=== PATIENT | male | born 1970 | race Hispanic/Latino ===

== ENCOUNTER 2024-10-12 18:06 | Emergency (ER) | payer BC ==
[~2024-10-12] VITALS: Ht 170.2 cm; Wt 83.0 kg
--- NOTE | 2024-10-12 18:16 | ERN ---
ED Note History of Present Illness Stated Complaint: CHEST PAIN,SOB,MULTIPLE COMPLAINTS Time Seen by MD: 18:09 Dictation: PATIENT IS A 54-YEAR-OLD MALE COMING IN TODAY WITH COMPLAINTS OF LEFT SHOULDER PAIN RADIATES TO HIS CHEST ONSET 1 HOUR PRIOR TO ARRIVAL. HE STATES HE WAS LIFTING SOME BRICKS WHEN HE FELT THE ONSET OF THE PAIN. SAID HE MIGHT HAVE BEEN DIAPHORETIC, TOOK A TYLENOL. STATES HE HAS NO HISTORY OF CARDIAC DISEASE. DOES HAVE A HISTORY OF HYPERTENSION CHOLESTEROL CURRENTLY IS ON A CARNIVAL HER DIET AND A KETO DIET TO LOSE WEIGHT. NO PAIN AT THIS TIME STATES THAT IS LEFT SHOULDER POPS WHEN HE RAISES HIS ARM UP. Allergies: Coded Allergies: No Known Drug Allergies (Unverified Allergy, Unknown, 10/12/24) Past Medical History RN Note Reviewed/Agreed w/PFSH: Yes Review of System Dictation CONSTITUTIONAL: NEGATIVE EXCEPT FOR HPI HEAD/FACE: NEGATIVE EXCEPT FOR HPI EENT: NEGATIVE EXCEPT FOR HPI RESPIRATORY: NEGATIVE EXCEPT FOR HPI GASTROINTESTINAL/ABDOMINAL: NEGATIVE EXCEPT FOR HPI GENITOURINARY: NEGATIVE EXCEPT FOR HPI MUSCULOSKELETAL: NEGATIVE EXCEPT FOR HPI LEFT SHOULDER PAIN RADIATES TO CHEST INTEGUMENTARY: NEGATIVE EXCEPT FOR HPI NEUROLOGICAL/PSYCH: NEGATIVE EXCEPT FOR HPI HEMATOLOGIC/LYMPHATIC: NEGATIVE EXCEPT FOR HPI ALL SYSTEMS NEGATIVE, EXCEPT NOTED ABOVE. 13 POINT REVIEW OF SYSTEMS ASSESSED AND ALL NEGATIVE EXCEPT FOR ABOVE. Initial Vital Sign VS Vital Signs Date Time Temp Pulse Resp B/P (MAP) Pulse Ox O2 Delivery O2 Flow Rate FiO2 10/12/24 18:23 98.2 78 16 133/80 98 Room Air 0 10/12/24 18:58 21 Physical Exam Dictation VITAL SIGNS REVIEWED GENERAL APPEARANCE: ALERT, ORIENTED X 3, NO ACUTE DISTRESS, WELL DEVELOPED, NOURISHED. ANXIOUS HEAD AND FACE: NON-TRAUMATIC. EYES: PERRL, PINK CONJUNCTIVAS, EYELID NO TRAUMA, ANTERIOR CHAMBER WITH ARCUS SENILIS. EARS: PINNAS INTACT AND NO SIGNS OF TRAUMA OR ERYTHEMA EAR CANALS CLEAR AND NO DISCHARGE TM NO ERYTHEMA NOSE: NO DISCHARGE, NO BLEEDING. OROPHARYNX: MOUTH NORMAL, TONGUE PINK, PHARYNX CLEAR,NO ERYTHEMA, TONSILS NO EXUDATES, NO ABSCESSES NOTED, MUCOUS MEMBRANE MOIST NECK: SUPPLE, NON-TENDER, NO THYROMEGALY, NO MASSES, NO JVD, NO BRUITS BREAST:DEFERRED CHEST:NO TENDERNESS, NO CREPITUS, NO PARADOXICAL MOVEMENT, NO RETRACTIONS LUNGS:CLEAR, WELL-VENTILATED, SYMMETRIC, NO RALES, NO WHEEZING, NO RHONCHI, NO STRIDOR, GOOD BREATH SOUNDS BILATERALLY HEART: REGULAR RATE, REGULAR RHYTHM, NO MURMUR, NO GALLOPS VASCULAR: NO PERIPHERAL EDEMA, ABDOMEN: SOFT, POSITIVE BOWEL SOUNDS, NONDISTENDED, NO GUARDING, NONTENDER, NO REBOUND, NO MASSES NO HEPATOMEGALY, NO SPLENOMEGALY, NO ASENCIO'S SIGN, NO HERNIAS. RECTAL: DEFERRED GENITAL: DEFERRED NEUROLOGICAL: NORMAL SPEECH, MOTOR FUNCTION INTACT, SENSORY FUNCTION INTACT MUSCULOSKELETAL: NECK NONTENDER, FULL RANGE OF MOTION, BACK NONTENDER, FULL RANGE OF MOTION, EXTREMITIES: NONTENDER, FULL RANGE OF MOTION SKIN: COLOR PINK, DRY, NO TURGOR, NO RASH, NO LACERATIONS, NO ABRASIONS, NO CONTUSIONS. LYMPHATIC: DEFERRED Results (Laboratory/Radiology) Laboratory/Radiology Laboratory Tests Test 10/12/24 18:50 10/12/24 19:54 White Blood Count 8.9 K/uL (4.8-10.8) Red Blood Count 4.90 MIL/uL (4.50-6.20) Hemoglobin 14.6 g/dL (14.0-18.0) Hematocrit 43.2 % (42-54) Mean Corpuscular Volume 88.2 fL (79-99) Mean Corpuscular Hemoglobin 29.8 pg (27.0-33.0) Mean Corpuscular Hemoglobin Concent 33.8 g/dL (32.0-36.0) Red Cell Distribution Width 12.5 % (11.0-15.5) Platelet Count 250 K/uL (130-400) Mean Platelet Volume 10.5 fL (7.5-10.5) Immature Granulocyte % (Auto) 0.1 % (0-1) Neutrophils (%) (Auto) 69.8 % (40.0-77.0) Lymphocytes (%) (Auto) 22.3 % (21.0-51.0) Monocytes (%) (Auto) 6.5 % (3.0-13.0) Eosinophils (%) (Auto) 0.7 % (0.0-8.0) Basophils (%) (Auto) 0.6 % (0.0-5.0) Neutrophils # (Auto) 6.2 K/uL (1.8-7.7) Lymphocytes # (Auto) 2.0 K/uL (1.0-4.8) Monocytes # (Auto) 0.6 K/uL (0.1-1.0) Eosinophils # (Auto) 0.06 K/uL (0.00-0.70) Basophils # (Auto) 0.05 K/uL (0.00-0.20) Absolute Immature Granulocyte (auto 0.01 K/uL (0-1) Nucleated Red Blood Cells 0.0 % (0.0-0.19) Sodium Level 135 mmol/L (136-145) L Potassium Level 3.8 mmol/L (3.5-5.1) Chloride Level 100 mmol/L (101-111) L Carbon Dioxide Level 26 mmol/L (21-32) Blood Urea Nitrogen 23 mg/dL (7-18) H Creatinine 0.9 mg/dL (0.5-1.3) Glomerular Filtration Rate Calc 101 mL/min (>90) Random Glucose 109 mg/dL (70-105) H Total Calcium 8.8 mg/dL (8.5-10.1) Magnesium Level 2.00 mg/dL (1.80-2.40) Troponin I High Sensitivity 5 ng/L (4-75) 5 ng/L (4-75) CHEST X-RAY NEGATIVE Labs Reviewed?: Yes EKG: (+) NSR EKG Comment: EKG NORMAL SINUS RHYTHM/HEART RATE 85/AXIS NORMAL/NO ECTOPY EKG NORMAL SINUS RHYTHM/HEART RATE 71/AXIS NORMAL/NO ECTOPY 2ND HEART SCORE TWO ED Course ED Course Orders Procedure Category Date Status Time 12 Lead Ekg Tracing- EKG 10/12/24 Logged Technical 18:12 Cbc With Differential LAB 10/12/24 Complete 18:14 Chest 1vw RAD 10/12/24 Resulted 18:14 12 Lead Ekg Tracing- EKG 10/12/24 Logged Technical 18:14 Magnesium LAB 10/12/24 Complete 18:14 Troponin I High LAB 10/12/24 Complete Sensitivity 18:14 Aspirin 325mg Tab PHA 10/12/24 Complete (Aspirin 325mg Tab) 18:30 Basic Metabolic Panel LAB 10/12/24 Complete 18:14 12 Lead Ekg Tracing- EKG 10/12/24 Logged Technical 19:43 Troponin I High LAB 10/12/24 Complete Sensitivity 19:43 Ketorolac PHA 10/12/24 Verified Tromethamine 30mg/Ml 20:30 Current Medications Medications (Trade) Dose Ordered Sig/Val Route PRN Reason Start Time Stop Time Status Last Admin Dose Admin Aspirin (Aspirin 325mg Tab) 325 mg ONCE ONCE PO 10/12/24 18:30 10/12/24 18:31 DC 10/12/24 18:52 Vital Signs Date Time Temp Pulse Resp B/P (MAP) Pulse Ox O2 Delivery O2 Flow Rate FiO2 10/12/24 20:09 98.2 72 16 128/74 98 Room Air* 0 21 10/12/24 18:58 98.2 78 16 133/80 98 Room Air* 0 21 10/12/24 18:23 98.2 78 16 133/80 98 Room Air 0 194/PATIENT STATES HE IS COMPLETELY ASYMPTOMATIC AND NO CHEST PAIN NO BACK PAIN NO SOB. HE WANTED TO LEAVE HOWEVER , HE AGREED FOR A 2ND SET OF CARDIAC ENZYMES AND AN EKG 2019/PATIENT REFUSED TO STAY IN THE HOSPITAL WE WILL BE DISCHARGED WITH ATYPICAL CHEST PAIN HYPONATREMIA AND DEHYDRATION. TOLD TO COME BACK TO THE EMERGENCY ROOM IF HEART Score Response (Comments) Value History: Low suspicion (0) 0 Age: 45-65yrs (+1) 1 Risk Factors: 1-2 risk factors (+1) 1 Initial Troponin: Normal limit (0) 0 Total 2 Medical Decision Making MDM MEDICAL DISCHARGE MAKING BASED ON CARDIAC WORKUP TO INCLUDE EKG AND TROPONIN CHEST X-RAY EKG AND TROPONINS REPEATED X2 BOTH SITS NEGATIVE PATIENT IN NO PAIN AT THIS TIME. DISCHARGED HOME TO FOLLOW UP WITH HIS DOCTOR. DX & DISP Disposition: Discharge Departure Impression: Primary Impression: Atypical chest pain Additional Impressions: Hyponatremia, Dehydration Condition: Stable Scripts Ibuprofen (Ibuprofen 800 mg Tab) 800 Mg Tab 800 MG PO Q8H PRN for fever or pain, #30 TAB 0 Refills Prov: SHARONDA MORENO CLOTH DOFFER 10/12/24 Additional Instructions: FOLLOW-UP WITH PRIMARY CARE PROVIDER IN 1 TO 2 DAYS. TAKE MEDICATIONS DIRECTED HERE IN THE EMERGENCY ROOM. OKAY TO CONTINUE HOME MEDICATIONS UNLESS OTHERWISE DISCUSSED DURING YOUR VISIT IN THE EMERGENCY ROOM TODAY. RETURN TO YOUR NEAREST EMERGENCY ROOM IF SYMPTOMS WORSEN OR IF THERE IS NO IMPROVEMENT. CALL 911 IF YOU NEED IMMEDIATE ASSISTANCE. TAKE TYLENOL OR MOTRIN [id number] NEEDED AND IF NO CONTRAINDICATIONS ARE PRESENT. INCREASE ORAL HYDRATION. A WOUND CULTURE OR URINE CULTURE WAS ORDERED HERE IN THE EMERGENCY ROOM DEPARTMENT PLEASE FOLLOW-UP WITH PRIMARY CARE PROVIDER AND ADVISE THEM TO GET REPEAT PORTS FROM OUR FACILITY. IF YOU HAD ANY DALIA WRAP/SPLINTS THAT WERE APPLIED HERE, PLEASE DO NOT REMOVE THEM UNTIL YOU SEE YOUR PRIMARY CARE OR SPECIALTY. DIET AND ACTIVITY TOLERATED. FOLLOW UP WITH YOUR PRIMARY CARE DOCTOR IN 1-2 DAYS NEEDED. RETURN TO THE EMERGENCY ROOM IF ANY WAY IF ANY CHEST PAIN PRESSURE JAW PAIN ARM PAIN. Time of Disposition: 20:20 I have reviewed the case, and I agree with, Diagnosis and Plan SHARONDA MORENO NP Oct 12, 2024 18:16
--- NOTE | 2024-10-12 18:51 | HMCIMG ---
INDICATION: CHEST PAIN TECHNIQUE: CHEST 1VW COMPARISON: None FINDINGS AND IMPRESSION: No acute consolidation or pleural effusion. Cardiac silhouette is within normal limits. Mild degenerative changes of the spine. The visualized upper abdomen appears unremarkable.
[2024-10-12] MEDS: ASPIRIN 325MG TAB PO ONE (18:52)
[2024-10-12 18:56] LABS: BASOPHILS # (AUTO) 0.05 K/uL (0.00-0.20); BASOPHILS % (AUTO) 0.6 % (0.0-5.0); EOSINOPHILS # (AUTO) 0.06 K/uL (0.00-0.70); EOSINOPHILS % (AUTO) 0.7 % (0.0-8.0); HEMATOCRIT 43.2 % (42-54); IMMATURE GRANULOCYTE ABSOLUTE 0.01 K/uL (0-1); LYMPHOCYTES % (AUTO) 22.3 % (21.0-51.0); MEAN CORPUSCULAR HEMOGLOBIN 29.8 pg (27.0-33.0); MEAN CORPUSCULAR HGB CONC 33.8 g/dL (32.0-36.0); MEAN CORPUSCULAR VOLUME 88.2 fL (79-99); MONOCYTES # (AUTO) 0.6 K/uL (0.1-1.0); MONOCYTES % (AUTO) 6.5 % (3.0-13.0); NEUTROPHILS # (AUTO) 6.2 K/uL (1.8-7.7); NEUTROPHILS % (AUTO) 69.8 % (40.0-77.0); PLATELET COUNT (AUTO) 250 K/uL (130-400); RED CELL DISTRIBUTION WIDTH 12.5 % (11.0-15.5); WHITE BLOOD COUNT (AUTO) 8.9 K/uL (4.8-10.8)
[2024-10-12 19:11] LABS: CREATININE 0.9 mg/dL (0.5-1.3); POTASSIUM 3.8 mmol/L (3.5-5.1)
[2024-10-12 20:09] VITALS: BP 128/74; PULSE 72; RESP 16; TEMP 98.2; O2SAT 98
[2024-10-12] MEDS ORDERED: IBUP-2077 PO (20:26)
[2024-10-12] MEDS: ketOROlac 30MG VIAL (30MG/ML) IVP ONE (20:29)
--- NOTE | 2024-10-13 01:28 | EKG ---
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
--- NOTE | 2024-10-13 06:51 | EKG ---
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
--- NOTE | 2024-10-14 09:07 | EKG ---
[facility] Test Date: 2024-10-12 Test Time: 19:49:18 Pat Name: ABI CALZADA Department: [facility] Room: Gender: M Rn Float: 08 : 1970 Requested By: SHARONDA MORENO Order Number: [id number] Reading MD: Ion Coombs Measurements Intervals [place] Rate: 71 P: 43 NE: 139 QRS: 44 QRSD: 93 T: 5 QT: 403 QTc: 440 Interpretive Statements Sinus rhythm Compared to ECG 10/12/2024 18:10:34 No significant changes Electronically Signed On 10-14-2024 13:34:53 CDT by Ion Coombs Please click the below link to view image of tracing.
== END 2024-10-12 20:34 | disposition home or self-care (01) ==
LOC: EDH 18:06
DX: R07.89 Other chest pain (principal); E86.0 Dehydration; E87.1 Hypo-osmolality and hyponatremia
CPT/HCPCS: 99284; 96374; 71045; 83735; 84484 ×2; 80048; 85025; 36415; 93005 ×2; J1885